=== PATIENT | male | born 1960 | race American Indian/Alaskan Native ===

== ENCOUNTER 2019-03-20 08:29 | Day surgery (SDC) | payer OTHER ==
[2019-03-20 09:55] LABS: Basophils % (Auto) 0.6 % (0.0-1.8); Eosinophils # (Auto) 0.1 K/mm3 (0.0-0.4); Eosinophils % (Auto) 1.6 % (0.0-4.3); Hematocrit 39.7 % (35.5-45.6); Hemoglobin 13.5 gm/dl (11.8-15.2); Lymphocytes # (Auto) 1.5 K/mm3 (1.2-5.4); Lymphocytes % (Auto) 39.6 % (13.4-35.0); Mean Corpuscular HGB Conc 34 % (32-34); Mean Corpuscular Volume 95 fl (84-94); Monocytes # (Auto) 0.3 K/mm3 (0.0-0.8); Monocytes % (Auto) 8.1 % (0.0-7.3); Platelet Count 244 K/mm3 (140-440); Red Blood Count 4.18 M/mm3 (3.65-5.03); Red Cell Distribution Width 15.7 % (13.2-15.2)
[2019-03-20 10:11] LABS: INR 1.06 (0.87-1.13)
[2019-03-20 10:12] LABS: Blood Urea Nitrogen 10 mg/dL (9-20)
[2019-03-20 10:16] VITALS: BP 134/90
[2019-03-20] MEDS ORDERED: VERSED IV NR (10:20)
[2019-03-20] MEDS ORDERED: SUBLIMAZE IV NR (10:20)
== END 2019-03-20 11:20 | disposition home or self-care (01) ==
LOC: CATHLABREC 08:29 → EDSTATUS 08:30 → CATHLABREC 11:20
PROVIDERS: ATTEND Radiology Vascular & Interventional Radiology
DX: N28.89 Other specified disorders of kidney and ureter (principal); I10 Essential (primary) hypertension; G47.30 Sleep apnea, unspecified; M19.90 Unspecified osteoarthritis, unspecified site; F17.210 Nicotine dependence, cigarettes, uncomplicated; F32.9 Major depressive disorder, single episode, unspecified; F41.9 Anxiety disorder, unspecified; Z53.8 Procedure and treatment not carried out for other reasons; Z90.49 Acquired absence of other specified parts of digestive tract; Z98.890 Other specified postprocedural states
CPT/HCPCS: 36415; 82565; 84520; 85025; 85610; 85730; J2250; J3010; 77012